=== PATIENT | female | born 2000 | race Caucasian/White ===

== ENCOUNTER 2020-09-15 00:04 | Emergency (ER) | payer OTHER, SELFPAY ==
[2020-09-15 00:09] VITALS: BP 116/67; PULSE 65; RESP 16; TEMP 36.2; O2SAT 98
--- NOTE | 2020-09-15 01:00 | ED.ABDPAIN ---
HPI - Abdominal Pain General Chief Complaint: Abdominal Pain Stated Complaint: low abd cramps Time Seen by Provider: 09/15/20 00:06 History of Present Illness HPI narrative: Severe menstrual cramps since yesterday afternoon. Intermittent. Associated with nausea. Tried Tylenol without improvement. Feels similar to past cramps, but more severe. Related Data Home Medications Medication Instructions Recorded Confirmed trazodone 50 mg PO HS PRN 09/15/20 09/15/20 Allergies Allergy/AdvReac Type Severity Reaction Status Date / Time No Known Allergies Allergy Verified 09/15/20 00:16 Review of Systems Review of Systems: All systems reviewed & are unremarkable except as noted in HPI and below Constitutional: Constitutional: Denies chills and Denies fever(s) Cardiovascular: Cardiovascular: Denies chest pain Respiratory: Respiratory: Denies dyspnea Gastrointestinal: Gastrointestinal: Reports abdominal pain, Denies constipation, Denies diarrhea, Reports nausea and Denies vomiting Genitourinary: Genitourinary: Denies abnormal vaginal bleeding, Denies hematuria and Denies dysuria Neurologic: Denies dizziness and Denies weakness Psychiatric: Psychiatric: Reports anxiety PMFSH Past Medical History Medical History Anxiety Social History Social History Gender identity (if verbalized by the patient): Female Exam Const: General: healthy appearing, no acute distress and alert Nutritional Appearance: well nourished Orientation/consciousness: patient oriented x3 HENMT: Head: normal to inspection Resp: Effort & Inspection: normal respiratory effort Auscultation: clear to auscultation bilaterally Cardio: Rate: regular rate Rhythm: regular rhythm GI: GI Palp: Yes Soft to palpation, Yes Tenderness to palpation present (GI) (periumbilical) and No Guarding due to palpation present (GI) Skin: General skin exam: normal color Neuro: General: patient oriented x3, moves all extremities and CN's II-XI intact bilaterally Speech: normal speech Extrem: General: normal to inspection Course Vital Signs Vital signs: Vital Signs Temperature 36.2 C L 09/15/20 00:09 Pulse Rate 65 09/15/20 00:09 Respiratory Rate 16 09/15/20 00:09 Blood Pressure 116/67 09/15/20 00:09 Pulse Oximetry 98 09/15/20 00:09 Temperature 36.2 C L 09/15/20 00:09 Pulse Rate 65 09/15/20 00:09 Respiratory Rate 16 09/15/20 00:09 Blood Pressure 116/67 09/15/20 00:09 Pulse Oximetry 98 09/15/20 00:09 MDM - Abdominal Pain Differential Diagnosis Differential diagnosis: Likely constipation Medical Records Attestation: I reviewed the patient's medical records. Lab Data Attestation: I reviewed the patient's lab results. Result diagrams: 09/15/20 01:56 09/15/20 01:56 Labs: Lab Results 09/15/20 09/15/20 09/15/20 Range/Units 01:56 01:56 02:42 WBC 6.3 (4.5-10.0) K/mm3 RBC 4.43 (4.2-5.4) M/mm3 Hgb 13.5 (12.0-15.0) g/dL Hct 38.7 (37.0-47.0) % MCV 87.4 (80-100) fl MCH 30.5 (26-34) pg MCHC 34.9 (32-36) g/dl RDW 12.3 (11.5-14.5) % Plt Count 219 (150-375) k/mm3 MPV 9.0 (7.4-10.4) fl Immature Gran % (Auto) 0.2 (0-0.5) % Neut % (Auto) 59.8 (45.5-73.1) % Lymph % (Auto) 31.2 (18.3-44.2) % [place] % (Auto) 4.8 (2.6-8.5) % Eos % (Auto) 3.2 (0-4.4) % Baso % (Auto) 0.8 (0.2-1.2) % Lymph # (Auto) 1.96 (0.9-3.2) K/mm3 [place] # (Auto) 0.3 (0.1-0.6) K/mm3 Eos # (Auto) 0.2 (0-0.3) K/mm3 Baso # (Auto) 0.1 (0.0-0.1) K/mm3 Abs Immat Gran (auto) 0.01 (0.00-0.031) K/mm3 Absolute Neuts (auto) 3.8 (1.3-6.7) K/mm3 Absolute Nucleated RBC 0.0 (0.0-0.012) K/mm3 Nucleated RBC % 0.0 (0.0-0.2) % Sodium 141 (137-145) mmol/L Potassium 4.0 (3.4-5.0) mmol/L Chloride 105 (98-107)
[2020-09-15 02:13] LABS: Basophils Absolute Auto 0.1 K/mm3 (0.0-0.1); Basophils Percent Auto 0.8 % (0.2-1.2); Eosinophils Absolute Auto 0.2 K/mm3 (0-0.3); Eosinophils Percent Auto 3.2 % (0-4.4); Hematocrit 38.7 % (37.0-47.0); Hemoglobin 13.5 g/dL (12.0-15.0); Immature Granulocyte Absolute 0.01 K/mm3 (0.00-0.031); Immature Granulocyte Percent A 0.2 % (0-0.5); Lymphocytes Absolute Auto 1.96 K/mm3 (0.9-3.2); Lymphocytes Percent Auto 31.2 % (18.3-44.2); Mean Corpuscular HGB Conc 34.9 g/dl (32-36); Mean Corpuscular Hemoglobin 30.5 pg (26-34); Mean Corpuscular Volume 87.4 fl (80-100); Monocytes Absolute Auto 0.3 K/mm3 (0.1-0.6); Monocytes Percent Auto 4.8 % (2.6-8.5); Neutrophils Absolute Auto 3.8 K/mm3 (1.3-6.7); Neutrophils Percent Auto 59.8 % (45.5-73.1); Platelet Count Result 219 k/mm3 (150-375); Red Blood Count 4.43 M/mm3 (4.2-5.4); Red Cell Distribution Width 12.3 % (11.5-14.5); White Blood Count 6.3 K/mm3 (4.5-10.0)
[2020-09-15 02:17] LABS: Alanine Aminotransferase 9 U/L (4-35); Albumin Level 4.3 g/dL (3.5-5.1); Alkaline Phosphatase 45 U/L (38-126); Anion Gap 5 mmol/L (8-16); Aspartate Amino Transferase 21 U/L (14-36); Bilirubin,Total 0.3 mg/dL (0.2-1.3); Blood Urea Nitrogen 9 mg/dL (7-17); Calcium 9.5 mg/dL (8.4-10.2); Carbon Dioxide 31 mmol/L (22-30); Chloride 105 mmol/L (98-107); Estimated CRCL calculation 106 ml/min; Estimated Glomerular Filt Rate > 60; Glucose 98 mg/dL (65-105); Lipase 36 U/L (23-300); Sodium 141 mmol/L (137-145)
[2020-09-15] MEDS: KETOROLAC 30 MG/ML VIAL (*BKC) IV PUSH (02:25)
[2020-09-15 03:03] LABS: Add Urine Microscopic? YES; Amorphous Sediment Urine Few; Appearance Urine Cloudy (Clear); Bacteria Urine 1+ /hpf; Bilirubin Urine Negative (Negative); Blood Urine Negative (Negative); Color Urine Yellow (Yellow); Glucose Urine UA Negative (Negative); Ketones Urine Negative (Negative); Leukocyte Esterase Ur Negative LEU/UL (Negative); Mucus Urine Few /lpf; Nitrate Urine Negative (Negative); Protein Urine Negative (Negative); Specific Grav Ur 1.018 (1.001-1.035); Squamous Epithelial Cell Urine Few /hpf (Few); Urobilinogen Urine Negative mg/dL (<2.0)
== END 2020-09-15 04:19 | disposition home or self-care (01) ==
PROVIDERS: Emergency Provider Emergency Medicine
DX: R10.9 Unspecified abdominal pain (principal); F41.9 Anxiety disorder, unspecified; Z97.5 Presence of (intrauterine) contraceptive device
CPT/HCPCS: 36415; 80053; 81001; 81025; 83690; 85025; 96374; 99284; J1885

== ENCOUNTER 2021-02-22 11:18 | Inpatient (IN) | payer OTHER, SELFPAY ==
[2021-02-22] VITALS (30 sets, daily range): BP systolic 114–128; BP diastolic 65–78; PULSE 71–100; RESP 9–20; TEMP 36.7–37.4; O2SAT 95–100
--- NOTE | ~2021-02-22 | US_ITS ---
EXAMINATION: US pelvic complete w TV DATE: 02/22/2021 15:19 INDICATION: Left adnexal pain. TECHNIQUE: Multiple transabdominal and transvaginal sonographic images of the pelvis were obtained. COMPARISON: None. FINDINGS: TRANSABDOMINAL ULTRASOUND: The uterus measures 7.3 x 4.9 x 3.1 cm. There is trace free fluid in the pelvis. TRANSVAGINAL ULTRASOUND: The endometrial complex measures 4 mm in thickness. There is an intrauterine device in expected posit ion. The right ovary measures 4.7 x 1.9 x 2.6 cm. The left ovary measures 2.9 x 2.2 x 2.2 cm. There i s normal vascular flow in the ovaries. IMPRESSION: 1. Normal pelvis. Intrauterine device in expected position. Reviewed, dictated and finalized at location B.
--- NOTE | ~2021-02-22 | CT_ITS ---
EXAMINATION: CT abdomen pelvis w con DATE: 02/22/2021 16:04 INDICATION: Left lower quadrant abdominal pain. TECHNIQUE: Computed tomography (CT) of the abdomen and pelvis was performed with 100 mL Omnipaque 350 intravenous contrast. Automated exposure control and iterative reconstruction technique were employe d. The dose-length product was 207.73 mGy-cm. COMPARISON: None. FINDINGS: The visualized portions of the lung bases demonstrate minimal atelectasis. No pleural effus ion. The heart size is normal. No pericardial effusion. The liver and gallbladder are normal. There i s severe splenomegaly measuring 20.5 cm. There are wedge-shaped peripheral areas of low-attenuation i n the spleen, likely infarcts. There is a hypodense subcapsular hematoma of the spleen measuring 4 mm in greatest thickness, likely subacute or chronic. The pancreas, adrenal glands, and kidneys are nor mal. There is an intrauterine device in expected position. There are no dilated loops of bowel. The a ppendix is not visualized. There are no pathologically enlarged lymph nodes. There is a small volume of pelvic ascites. There is mild lumbar spondylosis. IMPRESSION: 1. Severe splenomegaly with peripheral infarcts and small subacute versus chronic subcapsular hematom a. Reviewed, dictated and finalized at location B. IMPRESSION: 1. Severe splenomegaly with peripheral infarcts and small subacute versus chron ic subcapsular hematoma.
--- NOTE | ~2021-02-22 | US_ITS ---
US abdomen limited DATE: 02/25/2021 09:35 INDICATION: Elevated liver function tests TECHNIQUE: Real-time imaging of liver, pancreas, gallbladder areas COMPARISON: 02/22/2021 CT abdomen pelvis FINDINGS: No hepatic space-occupying mass lesion is evident. Normal hepatopedal portal venous flow di rection. Approximately 3 mm gallbladder wall polyp. No evidence of gallstones. Gallbladder wall thickness is w ithin normal range. Negative sonographic Mendoza sign. Common bile duct measures 3 mm. The pancreas appears unremarkable. There is splenomegaly, spleen measuring up to approximately 18 cm length. There are 2 peripheral area s of hypoechogenicity of the spleen which may represent infarcts or less likely lacerations. IMPRESSION: 3 mm gallbladder polyp Splenomegaly Two areas of peripheral hypoechogenicity of the spleen which may represent splenic infarcts or less l ikely splenic lacerations Reviewed, dictated and finalized at Location A. Reviewed, dictated and finalized at location B. IMPRESSION: 3 mm gallbladder polyp Splenomegaly Two areas of peripheral hypoechogenicity of the spleen which may represent sple shorty infarcts or less likely splenic lacerations
[2021-02-22 12:04] LABS: Basophils Absolute Auto 0.2 K/mm3 (0.0-0.1); Eosinophils Percent Auto 0.1 % (0-4.4); Hematocrit 37.7 % (37.0-47.0); Hemoglobin 12.8 g/dL (12.0-15.0); Immature Granulocyte Absolute 0.03 K/mm3 (0.00-0.031); Immature Granulocyte Percent A 0.4 % (0-0.5); Immature Platelet Fraction Pct 2.8 % (0.9-11.2); Lymphocytes Absolute Auto 5.55 K/mm3 (0.9-3.2); Mean Corpuscular Hemoglobin 30.3 pg (26-34); Mean Corpuscular Volume 89.1 fl (80-100); Mean Platelet Volume 9.6 fl (7.4-10.4); Monocytes Absolute Auto 1.3 K/mm3 (0.1-0.6); Monocytes Percent Auto 16.2 % (2.6-8.5); Neutrophils Percent Auto 12.3 % (45.5-73.1); Platelet Count Result 153 k/mm3 (150-375); Red Blood Count 4.23 M/mm3 (4.2-5.4); Red Cell Distribution Width 13.2 % (11.5-14.5)
[2021-02-22 12:09] LABS: Add Urine Microscopic? YES; Appearance Urine Clear (Clear); Bacteria Urine Trace /hpf; Bilirubin Urine 1+ (Negative); Blood Urine Negative (Negative); Color Urine Amber (Yellow); Glucose Urine UA Negative (Negative); Ketones Urine Negative (Negative); Leukocyte Esterase Ur Negative LEU/UL (Negative); Mucus Urine Heavy /lpf; Nitrate Urine Negative (Negative); Protein Urine 2+ mg/dL (Negative); RBC Urine 0-2 /hpf (0-2); Specific Grav Ur 1.026 (1.001-1.035); Squamous Epithelial Cell Urine Moderate /hpf (Few); WBC Urine 0-3 /hpf
[2021-02-22 12:14] LABS: Alanine Aminotransferase 364 U/L (4-35); Alkaline Phosphatase 307 U/L (38-126); Anion Gap 2 mmol/L (8-16); Aspartate Amino Transferase 371 U/L (14-36); Bilirubin,Total 1.4 mg/dL (0.2-1.3); Blood Urea Nitrogen 5 mg/dL (7-17); Calcium 9.1 mg/dL (8.4-10.2); Carbon Dioxide 31 mmol/L (22-30); Chloride 101 mmol/L (98-107); Estimated CRCL calculation 101 ml/min; Estimated Glomerular Filt Rate > 60; Glucose 91 mg/dL (65-105); Lipase 34 U/L (23-300); Potassium 3.8 mmol/L (3.4-5.0); Sodium 134 mmol/L (137-145)
--- NOTE | 2021-02-22 14:43 | ED.ABDPAIN ---
HPI - Abdominal Pain General Chief Complaint: Abdominal Pain Stated Complaint: abd pain Time Seen by Provider: 02/22/21 14:19 Source: patient and RN notes reviewed Mode of arrival: ambulatory History of Present Illness HPI narrative: This is a 20 year old female who presents for evaluation of left lower abdominal pain for 3 days. Her pain is constant and it is worse with walking and breathing. She has been taking tylenol 500 mg every 4 hours for her pain. She developed nausea today but she denies vomiting. She also reports fever 2 days ago of 101F. She denies dysuria, hematuria or frequent urination. She was evaluated by urgent care yesterday and she was started on macrobid. Her pain has worsened so she came to ER. She denies history of ovarian cyst. Related Data Home Medications Medication Instructions Recorded Confirmed trazodone 50 mg PO HS PRN 09/15/20 02/22/21 albuterol sulfate [Ventolin HFA] 2 puff INHALATION Q4H PRN 02/22/21 02/22/21 citalopram 30 mg PO DAILY 02/22/21 02/22/21 nitrofurantoin macrocrystal 100 mg PO Q12H 02/22/21 02/22/21 Allergies Allergy/AdvReac Type Severity Reaction Status Date / Time No Known Allergies Allergy Verified 09/15/20 00:16 Review of Systems Review of Systems: All systems reviewed & are unremarkable except as noted in HPI and below Constitutional: Constitutional: Denies chills, Reports fatigue and Reports fever(s) ENT: Denies sore throat Cardiovascular: Cardiovascular: Denies chest pain Respiratory: Respiratory: Denies dyspnea Gastrointestinal: Gastrointestinal: Reports abdominal pain, Denies diarrhea, Reports nausea and Denies vomiting Genitourinary: Genitourinary: Denies hematuria, Denies dysuria, Denies urinary incontinence and Reports vaginal discharge Musculoskeletal: Musculoskeletal: Reports back pain PMFSH Past Medical History Medical History (Updated 02/22/21 @ 22:17 by Pat Guaman MD) Anxiety Surgical History Surgical History (Updated 02/22/21 @ 15:06 by Pat Guaman MD) H/O wisdom tooth extraction Social History Social History Smoking status: Never smoker Alcohol intake: current Drinks per week: 1 Substance use: former Substance use type: marijuana Gender identity (if verbalized by the patient): Female Spiritual care concerns: No Exam Const: General: no acute distress and alert Orientation/consciousness: patient oriented x3 Eyes: EOM: EOMs intact bilaterally Chest: Chest palpation & inspection: normal inspection of the chest Resp: Effort & Inspection: normal respiratory effort and no retractions Auscultation: clear to auscultation bilaterally Cardio: Rate: regular rate Rhythm: regular rhythm Heart sounds: no murmurs GI: GI Palp: Yes Soft to palpation, Yes Tenderness to palpation present (GI) (LLQ, LUQ), No Guarding due to palpation present (GI) and No Rigid due to palpation Auscultation: normal bowel sounds : General: Yes no CVA tenderness Speculum Exam - Vagina: abnormal vaginal discharge white Speculum Exam - Cervix: Cervical os closed Bimanual exam- vagina & uterus: no cervical motion tenderness Bimanual Exam- Adnexa, other: No adnexal tenderness Skin: General skin exam: normal color Rashes: no rashes Neuro: General: patient oriented x3, moves all extremities and CN's II-XI intact bilaterally Psych: Mental Status: mental status grossly normal Affect: normal affect Course Reevaluation(s) Reevaluation #1: I have discussed with patient that her test have shown that she has infectious mononucleosis with significant findings of severely enlarge spleen with infarct and hematoma. She states her pain has improved. She is agreeable to observation. she appears stable but I discussed with patient risk of her enlarged spleen. Unable to anticoagulate due to subcapsular hematoma that is subacute or chronic. Date: 02/22/21 Time: 18:00
[2021-02-22] MEDS: KETOROLAC 30 MG/ML VIAL (*BKC) IV PUSH (15:21)
[2021-02-22] MEDS: ONDANSETRON INJ 4 MG/2 ML VIAL IV PUSH (15:22)
[2021-02-22] MEDS: SODIUM CHLORIDE 0.9% IV 1,000 ML 999 ML IV CONT (15:22)
[2021-02-22 16:11] LABS: Hepatitis B Surface Antigen Negative (Negative)
[2021-02-22 16:17] LABS: HAV RESULT Negative (Negative); Hepatitis B Core IgM Result Negative (Negative); Monoscreen Positive (Negative); Negative Monotest Control Negative (Negative); Positive Monotest Control Positive (Positive)
[2021-02-22 16:29] LABS: Hepatitis C Virus Antibody Negative (Negative)
--- NOTE | 2021-02-22 20:39 | PC.NURSE ---
SANTINO faxed. Pt presented to ED with complaints of left side abdominal pain of which at this time pt is requesting pain meds for. Pt states pain is 4 while at rest and 7/10 with movement; will administer prn meds. Pt resting on cart with stable vitals and otherwise has no other complaints at this time. Pt provided lunch box by EDMD. Pt in no obvious distress at this time and is watching TV. Alert and oriented x4 with call button and personal items within reach. Pt advised to press call button for assistance.
--- NOTE | 2021-02-22 21:01 | PC.NURSE ---
Report called to Katie. Moss to send pt to floor.
[2021-02-22] MEDS: MORPHINE SULFATE (*CRX) 4 MG/ML INJ IV PUSH ×2 (21:05→23:19)
--- NOTE | 2021-02-22 21:50 | PC.NURSE ---
This patient, Sallie Diana, was admitted to 3 [facility] Surg Room 319-01. Patient/family oriented to hospital policies and general routines including ID bracelet, bed and alarms, visiting hours, pain management, procedures, bathroom and other care routines, personal items, smoking policy, room service/diet, and visiting hours. Information on how to activate the Rapid Response Team has been discussed. Patient/Family are encouraged to report perceived risks to care and to ask questions if they do not understand what they are told or what they should do.
--- NOTE | 2021-02-22 22:00 | PM.IMHP ---
H&P: HPI History of Present Illness Date/Time: 02/22/21 22:00 Chief Complaint: Abdominal pain. Narrative: This is a very pleasant 20-year-old female without any significant medical history who presented to the emergency department earlier today via private vehicle from home for evaluation of abdominal pain. About 3 or 4 days ago she began feeling unwell with generalized malaise, fatigue, mild sore throat, and left sided abdominal pain. She has a difficult time describing the pain but states it feels like a fullness in the area with intermittent stabbing discomfort. It does not radiate and seems to improve somewhat with Tylenol. Two days ago she spiked a fever of 101? Fahrenheit and has had intermittent chills and sweats since. She was seen at urgent care yesterday and was prescribed antibiotics for possible urinary tract infection however she had no signs or symptoms of such. Today her pain was quite a bit worse and she came in for evaluation. CT of the abdomen and pelvis showed severe splenomegaly with peripheral infarcts and a small subacute versus chronic subcapsular hematoma. Her Monospot came back positive which is quite a surprise to her as she has not had sick contacts or close contact with anybody recently. Her boyfriend has been out of town for over a week visiting his family. 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 In any event multiple phone calls were made regarding her imaging findings and it was thought that she would do fine with conservative treatment and avoidance of any strenuous activities. Due to the size of her spleen it was decided to admit her to the hospital for observation to ensure that she remains stable overnight. Currently she has no specific complaints. Review of Systems Review of Systems: Narrative: Twelve systems were reviewed with pertinent positives and negatives as per HPI. No headache or neck ache. She denies sinus congestion, rhinorrhea, otalgia, and odynophagia. No rash. No lymphadenopathy. She denies jaundice and pruritus. She has not taken more than 4 grams of Tylenol a day. No dysuria, urinary frequency, or hesitancy. She has an IUD and rarely has spotting. Except as documented, all other systems were reviewed and are negative. [facility] Past Medical History Medical History (Updated 02/22/21 @ 23:27 by Hortencia Nunez PA-C) Anxiety Insomnia Surgical History Surgical History (Updated 02/22/21 @ 23:24 by Hortencia Nunez PA-C) History of tonsillectomy History of wisdom tooth extraction Family History Family History (Updated 02/22/21 @ 23:24 by Hortencia Nunez PA-C) Mother Asthma Hypothyroidism Sibling Bipolar disorder Social History Social History (Updated 02/22/21 @ 23:25 by Hortencia Nunez PA-C) Social History: The patient lives in [place] with her boyfriend. She is originally from [place], [place]. She is a lifelong nonsmoker and denies alcohol and illicit substance abuse but did use marijuana in the past. She designates her parents as her surrogate decision makers and she wishes to be a full code. Meds Home Medications and Allergies Home Medications Medication Instructions Recorded Confirmed Type ibuprofen 600 mg PO TID PRN #20 tablet 09/15/20 02/22/21 Rx trazodone 50 mg PO HS PRN 09/15/20 02/22/21 History albuterol sulfate [Ventolin HFA] 2 puff INHALATION Q4H PRN 02/22/21 02/22/21 History citalopram 30 mg PO DAILY 02/22/21 02/22/21 History nitrofurantoin macrocrystal 100 mg PO Q12H 02/22/21 02/22/21 History Allergies Allergy/AdvReac Type Severity Reaction Status Date / Time No Known Allergies Allergy Verified 09/15/20 00:16 Vital Signs Vital Signs - 24 hr 02/22/21 11:42 02/22/21 14:24 02/22/21 14:30 Temperature 98.0 F Pulse Rate 100 85 86 Respiratory Rate 20 14 15 Blood Pressure 124/75 Pulse Oximetry 100 99 99 02/22/21 15:04 02/22/21 15:15 02/22/21 15:30 Temperature Pulse Ra
[2021-02-22] MEDS: SODIUM CHLORIDE 0.9% IV 1,000 ML 125 ML IV CONT (22:55)
[2021-02-23] VITALS (7 sets, daily range): BP systolic 116–132; BP diastolic 62–67; PULSE 76–88; RESP 16–20; TEMP 36.5–37.9; O2SAT 97–99
[2021-02-23] MEDS: MORPHINE SULFATE (*CRX) 4 MG/ML INJ IV PUSH ×6 (02:08→17:35)
[2021-02-23] MEDS: ONDANSETRON INJ 4 MG/2 ML VIAL IV PUSH ×3 (05:10→21:19)
[2021-02-23] MEDS: ACETAMINOPHEN 325 MG TABLET 650 MG PO ×2 (05:14→11:18)
[2021-02-23 06:34] LABS: Basophils Percent Auto 0.4 % (0.2-1.2); Eosinophils Percent Auto 0.4 % (0-4.4); Hematocrit 35.6 % (37.0-47.0); Hemoglobin 12.1 g/dL (12.0-15.0); Immature Granulocyte Absolute 0.04 K/mm3 (0.00-0.031); Immature Granulocyte Percent A 0.5 % (0-0.5); Immature Platelet Fraction Pct 2.9 % (0.9-11.2); Lymphocytes Absolute Auto 5.79 K/mm3 (0.9-3.2); Lymphocytes Percent Auto 77.6 % (18.3-44.2); Mean Corpuscular Volume 88.1 fl (80-100); Mean Platelet Volume 9.6 fl (7.4-10.4); Monocytes Absolute Auto 0.2 K/mm3 (0.1-0.6); Monocytes Percent Auto 2.4 % (2.6-8.5); Neutrophils Absolute Auto 1.4 K/mm3 (1.3-6.7); Neutrophils Percent Auto 18.7 % (45.5-73.1); Platelet Count Result 150 k/mm3 (150-375); Red Blood Count 4.04 M/mm3 (4.2-5.4); Red Cell Distribution Width 13.3 % (11.5-14.5); White Blood Count 7.5 K/mm3 (4.5-10.0)
[2021-02-23 06:47] LABS: Alanine Aminotransferase 323 U/L (4-35); Albumin Level 3.4 g/dL (3.5-5.1); Alkaline Phosphatase 274 U/L (38-126); Anion Gap 1 mmol/L (8-16); Aspartate Amino Transferase 290 U/L (14-36); Bilirubin,Total 1.7 mg/dL (0.2-1.3); Blood Urea Nitrogen 4 mg/dL (7-17); Calcium 8.5 mg/dL (8.4-10.2); Carbon Dioxide 31 mmol/L (22-30); Chloride 104 mmol/L (98-107); Estimated CRCL calculation 101 ml/min; Estimated Glomerular Filt Rate > 60; Glucose 91 mg/dL (65-105); Magnesium 1.7 mg/dL (1.6-2.3); Potassium 4.2 mmol/L (3.4-5.0); Sodium 136 mmol/L (137-145)
[2021-02-23] MEDS: CITALOPRAM HYDROBROMIDE 10 MG TABLET 30 MG PO (08:12)
[2021-02-23] MEDS: SODIUM CHLORIDE 0.9% IV 1,000 ML 75 ML IV CONT (11:18)
--- NOTE | 2021-02-23 17:15 | PM.IMPN ---
Progress Note: A&P Assessment and Plan (1) Infectious mononucleosis: Code(s): B27.90 - Infectious mononucleosis, unspecified without complication Status: Acute Assessment and Plan: encourage adequate hydration and improved dietary intake treat nausea and vomiting provide IV hydration until vomiting stops, will continue her IV fluids at 75 mL an hour, providing antiemetics, continue using Zofran p.r.n.. encourage rest, educate patient to avoid COVID and to continue mask wearing, encouraged her to avoid eating out at risk for COVID infection with her current immune system already stressed. Continued bed rest at this time. Added IV Tylenol p.r.n., added tramadol p.r.n., added [place] p.r.n.. STD workups have been negative, hepatitis panel was negative, cervix culture pending. found to be positive for infectious mononucleosis, now due for her 2nd Moderna COVID vaccination. encouraged her to get that as soon as she recovers, perhaps in 5-7 days. recheck a CMP in the morning to monitor for further improved liver lab work. ALT 323, AST 290, alk-phos 274. urinalysis clear, white count 7.5, elevated temp this morning at 100.2, total bili 1.7. (2) Splenomegaly: Code(s): R16.1 - Splenomegaly, not elsewhere classified Status: Acute Assessment and Plan: pain is left mid quadrant of the abdomen, in spleen region. IV morphine for her pain control. zofran for N/V. still vomiting unable to keep any oral fluids or food down at this time. Continued bed rest. Encouraged her to rest and allow her abdomen to fully relax. Added IV Tylenol p.r.n., added tramadol p.r.n., added [place] p.r.n.. AVOID - NSAIDs. If patient has not improved, will consult general surgery in the morning. follow-up with Gen. Surgery after discharge. may be related to [place] diagnosis. continue her IV fluids at 75 mL an hour encouraged her to rest and get plenty of sleep. 1st Moderna COVID vaccination a month ago and is now due for her 2nd vaccination. Will recheck a CMP in the morning to monitor for further improved liver lab work. elevated LFTs: ALT was 323, AST was 290, alk-phos was 274. her urinalysis was clear, white count 7.5, elevated temp this morning at 100.2, total bili 1.7. (3) Splenic infarct: Code(s): D73.5 - Infarction of spleen Status: Acute Assessment and Plan: she continues to be hemodynamically stable with SBPs greater than 110 and heart rate in the 80s, regular rhythm still requiring IV morphine for her pain control and Zofran p.r.n.. Continued bed rest at this time. Added IV Tylenol p.r.n., added tramadol p.r.n., added [place] p.r.n.. Provided nursing instructions to use these oral pain controlling agents to avoid using IV morphine. follow-up with Gen. Surgery office after her discharge. positive for infectious mononucleosis, continue her IV fluids at 75 mL an hour, recent Moderna COVID vaccination denies any physical trauma recheck a CMP in the morning to monitor for further improved liver lab work. Her ALT was 323, AST was 290, alk-phos was 274. her urinalysis was clear, white count 7.5, elevated temp this morning at 100.2, total bili 1.7. (4) Hematoma of spleen without rupture of capsule: Code(s): D73.5 - Infarction of spleen Status: Acute Assessment and Plan: IV morphine for her pain control. pain is left mid to lower quadrant of the abdomen, in spleen region. N/V controlled with zofran, ordering soft bland diet Continued bed rest at this time. Will recheck a CBC and CMP in the morning ALT 323, AST 290, alk-phos 274. her urinalysis clear, white count 7.5, elevated temp this morning at 100.2, total bili 1.7. continue IVFs. subcapsular hematomas neither predictor for delayed rupture nor an indication for operation of the spleen in a hemodynamically stable patient If patient has not improved, will consult general surgery in the morning. I did sp
[2021-02-23 19:20] LABS: Immature Reticulocyte Fraction 12.6 % (3.0-15.9); Reticulocyte Hemoglobin Conten 30.9 pg (28.2-35.7); Reticulocyte Percent 2.18 % (0.7-4.3); Reticulocytes Absolute 0.08 B/L (32.2-175.7)
[2021-02-23] MEDS: HYDROcodone/acetaminophen (*CRX) 5-325 MG TABLET 1 TAB PO (20:05)
[2021-02-23] MEDS: traMADol HCL (*CRX) 50 MG TABLET PO (23:18)
[2021-02-24] MEDS: SODIUM CHLORIDE 0.9% IV 1,000 ML 75 ML IV CONT ×2 (02:19→19:04)
[2021-02-24] MEDS: HYDROcodone/acetaminophen (*CRX) 5-325 MG TABLET 1 TAB PO ×3 (02:23→21:35)
[2021-02-24 06:00] VITALS: BP 128/67; PULSE 73; RESP 16; TEMP 36.8; O2SAT 100
[2021-02-24 07:04] LABS: Hematocrit 35.9 % (37.0-47.0); Hemoglobin 12.2 g/dL (12.0-15.0); Mean Corpuscular Hemoglobin 28.9 pg (26-34); Mean Corpuscular Volume 85.1 fl (80-100); Mean Platelet Volume 9.5 fl (7.4-10.4); Platelet Count Result 148 k/mm3 (150-375); Red Blood Count 4.22 M/mm3 (4.2-5.4); Red Cell Distribution Width 13.3 % (11.5-14.5); White Blood Count 9.9 K/mm3 (4.5-10.0)
[2021-02-24 07:12] LABS: Lactic Acid Reflex 0.9 mmol/L (0.7-2.1)
[2021-02-24 07:22] LABS: Alanine Aminotransferase 545 U/L (4-35); Albumin Level 3.2 g/dL (3.5-5.1); Alkaline Phosphatase 301 U/L (38-126); Anion Gap 2 mmol/L (8-16); Aspartate Amino Transferase 646 U/L (14-36); Blood Urea Nitrogen 5 mg/dL (7-17); Calcium 8.9 mg/dL (8.4-10.2); Carbon Dioxide 33 mmol/L (22-30); Chloride 101 mmol/L (98-107); Creatine Kinase 22 U/L (30-135); Estimated CRCL calculation 116 ml/min; Estimated Glomerular Filt Rate > 60; Glucose 70 mg/dL (65-105); Potassium 4.4 mmol/L (3.4-5.0); Sodium 136 mmol/L (137-145)
[2021-02-24 07:34] LABS: Lactate Dehydrogenase 2118 U/L (313-618)
[2021-02-24] MEDS: ONDANSETRON INJ 4 MG/2 ML VIAL IV PUSH ×2 (07:45→14:43)
[2021-02-24] MEDS: traMADol HCL (*CRX) 50 MG TABLET PO ×2 (07:45→17:27)
[2021-02-24 08:00] VITALS: PULSE 73; RESP 16; O2SAT 100
[2021-02-24 08:28] LABS: Band Neutrophils Percent 3 % (0-6); Lymphocytes Absolute Manual 8.61 K/mm3 (1.1-4.5); Neutrophils Absolute Manual 1.28 K/mm3 (1.7-7.2); Neutrophils Percent Manual 10 % (46-73); Total Cells Counted 100
[2021-02-24 08:47] LABS: Platelet Estimate Decreased (Adequate)
[2021-02-24] MEDS: MORPHINE SULFATE (*CRX) 4 MG/ML INJ IV PUSH (08:56)
[2021-02-24] MEDS: PANTOPRAZOLE SODIUM IV 40 MG VIAL IV PUSH ×2 (12:28→21:36)
[2021-02-24] MEDS: METOCLOPRAMIDE HCL INJ 10 MG/2 ML VIAL IV PUSH ×2 (12:28→18:53)
[2021-02-24] MEDS: BISACODYL 10 MG SUPPOSITORY RECTAL (12:28)
--- NOTE | 2021-02-24 13:18 | PM.IMPN ---
Progress Note: A&P Assessment and Plan (1) Infectious mononucleosis: Onset Date: ~02/2021 Code(s): B27.90 - Infectious mononucleosis, unspecified without complication Status: Acute Assessment and Plan: encourage adequate hydration and improved dietary intake stop nausea and vomiting stop IV fluids at 75 mL an hour once N/V controlled providing antiemetics, continue using Zofran p.r.n..and Reglan encourage rest, educate patient to avoid COVID and to continue mask wearing Continued bed rest at this time. continue tramadol p.r.n., added [place] p.r.n.. STD workups have been negative, hepatitis panel was negative, cervix culture pending. found to be positive for infectious mononucleosis A now due for her 2nd Moderna COVID vaccination. encouraged her to get that as soon as she recovers, perhaps in 5-7 days. LFTs rising, possibly due to [place], may need to follow-up with Infectious Disease Dr. Alvarez. (2) Splenomegaly: Onset Date: ~02/2021 Code(s): R16.1 - Splenomegaly, not elsewhere classified Status: Acute Assessment and Plan: pain is left mid quadrant of the abdomen, in spleen region. tramadol, norco, IV morphine for her pain control. zofran and reglan for N/V. still vomiting AVOID - NSAIDs. consulted general surgery Her reticulocyte count is significantly low , may need to follow-up with hematology to ensure this resolves. liver enzymes are also increasing, alk-phos 274 to 301 now, ALT 323 to 545 now, AST 290 to 646 now, bili up to 3.0 related to mono (3) Splenic infarct: Onset Date: Unknown Code(s): D73.5 - Infarction of spleen Status: Acute Assessment and Plan: no increase in pain or discomfort today H/H stable retic count very low hemodynamically stable with SBPs greater than 110 and heart rate in the 80s, regular rhythm still requiring IV morphine / tramadol / [place] and Zofran/Reglan p.r.n.. Continued bed rest at this time. positive for infectious mononucleosis, recent Moderna COVID vaccination denies any physical trauma (4) Hematoma of spleen without rupture of capsule: Onset Date: ~02/21/21 Code(s): D73.5 - Infarction of spleen Status: Acute Assessment and Plan: may need rescanned prior to discharge subcapsular hematomas neither predictor for delayed rupture nor an indication for operation of the spleen in a hemodynamically stable patient appreciate Gen Surgery following H/H stable as noted (5) Elevated LFTs: Onset Date: ~02/2021 Code(s): R79.89 - Other specified abnormal findings of blood chemistry Status: Acute Assessment and Plan: Could be related to MONO and N/V/dehydration or Spleen hematoma. tramadol p.r.n., [place] p.r.n.. continue to avoid NSAIDs. hepatitis panel was negative, positive for infectious mononucleosis, denies any alcohol use of anything more than 1 drink socially LFTs and BILI all worse today Additional Plan The patient presents today for evaluation of left upper quadrant abdominal pain, found to have severe splenomegaly with peripheral infarcts in small subacute versus chronic subcapsular hematoma. She was also positive for mononucleosis with transaminitis. I assume the splenic infarcts may be related to the mono as she has no personal or family history of hypercoagulable state. A subcapsular hematoma was also noted in the spleen however may very well be chronic. It is because of this that we decided to monitor her overnight to ensure stability. Conservative treatment to include IV fluid rehydration, antiemetics, and analgesics as needed. We had a long discussion about the importance to avoid strenuous activity and contact given the splenomegaly. Subjective Date/time seen: 02/24/21 13:18 Sallie is slightly improved today. Her abdomen is less tender to the touch, she did have an episode of vomiting today, this morning prior to the general surgeon
--- NOTE | 2021-02-24 13:20 | PM.CNGS ---
Assessment and Plan Assessment and plan (1) Infectious mononucleosis: Onset Date: ~02/2021 Code(s): B27.90 - Infectious mononucleosis, unspecified without complication Status: Acute Assessment and Plan: This patient is still having symptoms from this. Does not have much abdominal pain but is complaining of constant nausea. Has not had a bowel movement in several days. (2) Hematoma of spleen without rupture of capsule: Onset Date: ~02/21/21 Code(s): D73.5 - Infarction of spleen Status: Acute Assessment and Plan: CT scan in the emergency room showed some splenic infarcts and a subcapsular hematoma. This appeared to be chronic and the spleen was enlarged to 20 cm. I cannot specifically feel it underneath the left rib margin but the patient does have some left upper quadrant tenderness to palpation. (3) Elevated LFTs: Onset Date: ~02/2021 Code(s): R79.89 - Other specified abnormal findings of blood chemistry Status: Acute Assessment and Plan: This may also be secondary to her mononucleosis. Would simply observe and repeat labs as needed. (4) Splenomegaly: Onset Date: ~02/2021 Code(s): R16.1 - Splenomegaly, not elsewhere classified Status: Acute Assessment and Plan: Most likely secondary to 1. Above. Have warned patient about contact sports and avoiding falls. (5) Splenic infarct: Onset Date: Unknown Code(s): D73.5 - Infarction of spleen Status: Acute Assessment and Plan: As above. Additional Plan Because nausea is the patient's main problem I have rearranged her nausea medication such as she could have something once every 3 hours this will alternate Reglan and Zofran. Since Reglan has an interaction with her citalopram we will hold this and see if hospitalist can order something else for her bipolar disease or simply hold it for a few days and restart it when she can come off the Reglan. I have put her back on clear liquids and encouraged her to try clear liquids as she tolerates it. I also couraged her to walk in the hallways as activity seems to help the bowels. History of Present Illness Consult details Consult date: 02/25/21 Reason for consult: other (nausea in face of Mononucleosis) Requesting physician: Roselyn Nguyen NP Narrative: This is a very pleasant 20-year-old White female without any significant medical history who presented to the emergency department on 02/21/2021 via private vehicle from home for evaluation of abdominal pain. About 3 or 4 days before that she began feeling unwell with generalized malaise, fatigue, mild sore throat, and left sided abdominal pain. She has a difficult time describing the pain but states it feels like a fullness in the area with intermittent stabbing discomfort. It does not radiate and seems to improve somewhat with Tylenol. Two days prior to admission she spiked a fever of 101? Fahrenheit and has had intermittent chills and sweats since. She was seen at an urgent care yesterday and was prescribed antibiotics for possible urinary tract infection however she had no signs or symptoms of such. Today her pain was quite a bit worse and she came in for evaluation. CT of the abdomen and pelvis showed severe splenomegaly with peripheral infarcts and a small subacute versus chronic subcapsular hematoma. Her Monospot came back positive which is quite a surprise to her as she has not had sick contacts or close contact with anybody recently. Her boyfriend has been out of town for over a week visiting his family. 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 In any event multiple phone calls were made regarding her imaging findings and it was thought that she would do fine with conservative treatment and avoidance of any strenuous activities. Due to the size of her spleen it was decided to admit her to the hospital for observation to ensure that she
[2021-02-24 13:49] VITALS: BP 129/58; PULSE 65; RESP 16; TEMP 36.4; O2SAT 100
[2021-02-24] MEDS: DOCUSATE SODIUM 100 MG CAPSULE PO (21:36)
[2021-02-24 21:49] VITALS: BP 122/65; PULSE 75; RESP 18; TEMP 37.1; O2SAT 99
[2021-02-25 05:36] VITALS: BP 119/62; PULSE 78; RESP 18; TEMP 36.9; O2SAT 98
[2021-02-25 06:22] LABS: Basophils Absolute Auto 0.2 K/mm3 (0.0-0.1); Basophils Percent Auto 1.9 % (0.2-1.2); Eosinophils Percent Auto 0.1 % (0-4.4); Hematocrit 34.7 % (37.0-47.0); Hemoglobin 12.1 g/dL (12.0-15.0); Immature Granulocyte Absolute 0.06 K/mm3 (0.00-0.031); Immature Granulocyte Percent A 0.7 % (0-0.5); Lymphocytes Absolute Auto 6.91 K/mm3 (0.9-3.2); Lymphocytes Percent Auto 81.1 % (18.3-44.2); Mean Corpuscular HGB Conc 34.9 g/dl (32-36); Mean Corpuscular Hemoglobin 29.3 pg (26-34); Mean Platelet Volume 9.3 fl (7.4-10.4); Monocytes Absolute Auto 0.2 K/mm3 (0.1-0.6); Neutrophils Absolute Auto 1.2 K/mm3 (1.3-6.7); Neutrophils Percent Auto 14.2 % (45.5-73.1); Nucleated Red Blood Cells Perc 0.5 % (0.0-0.2); Platelet Count Result 144 k/mm3 (150-375); Red Blood Count 4.13 M/mm3 (4.2-5.4); Red Cell Distribution Width 13.1 % (11.5-14.5); White Blood Count 8.5 K/mm3 (4.5-10.0)
[2021-02-25 06:43] LABS: Alanine Aminotransferase 624 U/L (4-35); Albumin Level 3.1 g/dL (3.5-5.1); Alkaline Phosphatase 430 U/L (38-126); Anion Gap 6 mmol/L (8-16); Aspartate Amino Transferase 655 U/L (14-36); Blood Urea Nitrogen 5 mg/dL (7-17); Calcium 8.4 mg/dL (8.4-10.2); Carbon Dioxide 27 mmol/L (22-30); Chloride 100 mmol/L (98-107); Estimated CRCL calculation 116 ml/min; Estimated Glomerular Filt Rate > 60; Glucose 70 mg/dL (65-105); Potassium 3.7 mmol/L (3.4-5.0); Sodium 133 mmol/L (137-145)
[2021-02-25 06:58] LABS: Atypical Lymphocytes Present; Platelet Estimate Adequate (Adequate)
[2021-02-25] MEDS: HYDROcodone/acetaminophen (*CRX) 5-325 MG TABLET 1 TAB PO ×3 (07:41→20:04)
[2021-02-25] MEDS: SODIUM CHLORIDE 0.9% IV 1,000 ML 75 ML IV CONT (07:41)
[2021-02-25] MEDS: DOCUSATE SODIUM 100 MG CAPSULE PO (09:38)
[2021-02-25] MEDS: ONDANSETRON HCL ODT 4 MG TABLET SUBLINGUAL (09:38)
[2021-02-25] MEDS: PANTOPRAZOLE SODIUM IV 40 MG VIAL IV PUSH ×2 (09:38→20:05)
--- NOTE | 2021-02-25 11:16 | WPDINFPN2 ---
Progress Note: A&P Assessment and Plan (1) Infectious mononucleosis: Onset Date: ~02/2021 Code(s): B27.90 - Infectious mononucleosis, unspecified without complication Status: Acute Assessment and Plan: EBV mono, immunocompetent REC Supportive care, call if other Qs Subjective Date/time seen: 02/25/21 11:16 Objective Data Vital Signs Vital Signs: Vital Signs - 24 hr 02/24/21 13:49 02/24/21 21:49 02/25/21 05:36 Temperature 36.4 C 37.1 C 36.9 C Pulse Rate 65 75 78 Respiratory Rate 16 18 18 Blood Pressure 129/58 L 122/65 119/62 Pulse Oximetry 100 99 98 Intake/Output Intake/Output: Intake & Output 02/22/21 02/23/21 02/24/21 02/25/21 23:59 23:59 23:59 23:59 Intake Total 1000 4020 2940 1250 Output Total 2000 2300 700 Balance 1000 2020 640 550 Meds/Results Medications: Active Medications Generic Name Dose Route Start Last Admin Trade Name Freq PRN Reason Stop Dose Admin Hydrocodone Bitart/Acetaminophen 1 tab 02/23/21 16:33 02/25/21 07:41 Hydrocodone/Acetaminophen (*Crx) 5-325 Mg Tablet PO 1 tab Q6H PRN Administration Pain Rated 6 or Greater Albuterol 2 puff 02/22/21 23:33 Albuterol Sulfate (*Sp) Aerosol 1 Puff INHALATION Q4H PRN Shortness Of Breath Or Wheezing Citalopram Hydrobromide 30 mg 02/23/21 09:00 02/24/21 11:30 Citalopram Hydrobromide 10 Mg Tablet PO Not Given DAILY ARNOLDO Docusate Sodium 100 mg 02/24/21 21:00 02/25/21 09:38 Docusate Sodium 100 Mg Capsule PO 100 mg Q12HR ARNOLDO Administration Sodium Chloride 1,000 mls @ 75 mls/hr 02/22/21 19:20 02/25/21 07:41 Normal Saline Iv IV CONT 75 mls/hr .[id number] ARNOLDO Administration Metoclopramide HCl 10 mg 02/24/21 09:22 02/24/21 18:53 Metoclopramide Hcl Inj 10 Mg/2 Ml Vial IV PUSH 10 mg Q6HR PRN Administration Nausea Morphine Sulfate 4 mg 02/23/21 01:43 02/24/21 08:56 Morphine Sulfate (*Crx) 4 Mg/Ml Inj IV PUSH 4 mg Q3H PRN Administration Pain Rated 7-10 Ondansetron HCl 4 mg 02/25/21 08:45 02/25/21 09:38 Ondansetron Hcl Odt 4 Mg Tablet SUBLINGUAL 4 mg Q6HR PRN Administration Nausea And Vomiting Pantoprazole Sodium 40 mg 02/24/21 09:00 02/25/21 09:38 Pantoprazole Sodium Iv 40 Mg Vial IV PUSH 40 mg Q12HR ARNOLDO Administration Tramadol HCl 50 mg 02/23/21 16:33 02/24/21 17:27 Tramadol Hcl (*Crx) 50 Mg Tablet PO 50 mg Q6H PRN Administration Pain Rated 5 or Less Trazodone HCl 50 mg 02/22/21 23:33 Trazodone Hcl 50 Mg Tablet PO HS PRN Insomnia Radiology Results: ITS Impressions Pelvic/Transvag US 02/22/21 15:21 IMPRESSION: 1. Normal pelvis. Intrauterine device in expected position. Abdomen/Pelvis CT 02/22/21 16:11 IMPRESSION: 1. Severe splenomegaly with peripheral infarcts and small subacute versus chronic subcapsular hematoma. Abdomen Ultrasound 02/25/21 09:54 IMPRESSION: 3 mm gallbladder polyp Splenomegaly Two areas of peripheral hypoechogenicity of the spleen which may represent splenic infarcts or less likely splenic lacerations Labs Labs: Laboratory Results - last 24 hr 02/25/21 02/25/21 06:04 06:04 WBC 8.5 RBC 4.13 L Hgb 12.1 Hct 34.7 L MCV 84.0 MCH 29.3 MCHC 34.9 RDW 13.1 Plt Count 144 L MPV 9.3 Immature Gran % (Auto) 0.7 H Neut % (Auto) 14.2 L Lymph % (Auto) 81.1 H Glascock % (Auto) 2.0 L Eos % (Auto) 0.1 Baso % (Auto) 1.9 H Lymph # (Auto) 6.91 H Glascock # (Auto) 0.2 Eos # (Auto) 0.0 Baso # (Auto) 0.2 H Abs Immat Gran (auto) 0.06 H Absolute Neuts (auto) 1.2 L Absolute Nucleated RBC 0.0 Nucleated RBC % 0.5 H Atypical Lymphocytes Present Platelet Estimate Adequate Sodium 133 L Potassium 3.7 Chloride 100 Carbon Dioxide 27 Anion Gap 6 L BUN 5 L Creatinine 0.60 L Estim Creat Clear Calc 116 Estimated GFR > 60 Glucose 70 Calcium 8.4 Total Bilirubin
--- NOTE | 2021-02-25 13:45 | PM.IMPN ---
Progress Note: A&P Assessment and Plan (1) Infectious mononucleosis: Onset Date: ~02/2021 Code(s): B27.90 - Infectious mononucleosis, unspecified without complication Status: Acute Assessment and Plan: Charles Mix spot test + -likely the etiology of her elevated liver enzymes, splenomegaly, and pain -patient is improving but still having pain -ultrasound of the abdomen shows her spleen is enlarged at 18 cm, which was slightly less than on admission with the CT at 20 cm -splenic infarctions thought to be found on ultrasound -no signs of splenic rupture at this time -Will check for HIV in the AM -ID consulted, I appreciate his recommendations -No need for steroids or antivirals at this time -PRN norco -stop IVF and encourage oral intake (2) Splenomegaly: Onset Date: ~02/2021 Code(s): R16.1 - Splenomegaly, not elsewhere classified Status: Acute Assessment and Plan: Due to above -monitor (3) Splenic infarct: Onset Date: Unknown Code(s): D73.5 - Infarction of spleen Status: Acute Assessment and Plan: no increase in pain or discomfort today -H/H stable (4) Hematoma of spleen without rupture of capsule: Onset Date: ~02/21/21 Code(s): D73.5 - Infarction of spleen Status: Acute Assessment and Plan: -CT shows a hypodense subcapsular hematoma of the spleen measuring 4 mm in greatest thickness, likely subacute or chronic -Sx recommends monitoring. If any signs of hemo instability or sudden worsening pain/anemia, may consider re-evaluating. (5) Elevated LFTs: Onset Date: ~02/2021 Code(s): R79.89 - Other specified abnormal findings of blood chemistry Status: Acute Assessment and Plan: Likely related to mono -denies any alcohol use of anything more than 1 drink socially -Hepatitis panel negative -bili up today, u/s done which did not show cause for concern. There was a gallbladder polyp that could be removed electively in the future or can undergo surveillance imaging to monitor it as they are usually benign but should be monitored. -Monitor with daily labs Time Spent With Patient Time with patient: 25 - 35 minutes Subjective Date/time seen: 02/25/21 13:45 Interval history: Pt is a 20-year-old female here for complications of mono. Patient was seen today and states she continues to have pain in her left upper quadrant but it is improved compared to when she 1st came in. She was just eating breakfast on my exam and so far did not have any nausea or vomiting with it. Pt denies fevers, chills, sore throat, stiff neck, constipation, diarrhea, chest pain, or shortness of breath. Review of Systems Review of Systems: All systems reviewed & are unremarkable except as noted in HPI and below Exam Narrative: Exam Narrative: General: Well developed well nourished patient in NAD HEENT: normocephalic Neck: supple Neuro: Alert and oriented x4 CV:RRR Resp:CTA Abd: Soft, non distended. No pain to palpation. Positive bowel sounds. Splenomegaly without hepatomegaly on exam. Extremities: No swelling, erythema, or pain to palpation. Objective Data Vital Signs Vital Signs: Vital Signs - 24 hr 02/24/21 13:49 02/24/21 21:49 02/25/21 05:36 Temperature 97.6 F 98.8 F 98.4 F Pulse Rate 65 75 78 Respiratory Rate 16 18 18 Blood Pressure 129/58 L 122/65 119/62 Pulse Oximetry 100 99 98 Intake/Output Intake/Output: Intake & Output 02/22/21 02/23/21 02/24/21 02/25/21 23:59 23:59 23:59 23:59 Intake Total 1000 4020 2940 1250 Output Total 2000 2300 700 Balance 1000 2020 640 550 Meds/Results Medications: Active Medications Generic Name Dose Route Start Last Admin Trade Name Freq PRN Reason Stop Dose Admin Hydrocodone Bitart/Acetaminophen 1 tab 02/23/21 16:33 02/25/21 07:41 Hydrocodone/Acetaminophen (*Crx) 5-325 Mg Tablet PO 1 tab Q6H PRN Administration Pain Ra
[2021-02-25 13:47] VITALS: BP 124/59; PULSE 69; RESP 16; TEMP 37.6; O2SAT 100
--- NOTE | 2021-02-25 15:57 | PM.PNGS ---
Progress Note: A&P Assessment and Plan (1) Infectious mononucleosis: Onset Date: ~02/2021 Code(s): B27.90 - Infectious mononucleosis, unspecified without complication Status: Acute Assessment and Plan: Nausea and abdominal pain have improved more today. Only received one dose of Zofran early this morning. She is able to tolerate a regular diet today and oral medications. Continue supportive care. (2) Hematoma of spleen without rupture of capsule: Onset Date: ~02/21/21 Code(s): D73.5 - Infarction of spleen Status: Acute Assessment and Plan: CT scan in the emergency room showed some splenic infarcts and a subcapsular hematoma. This appeared to be chronic and the spleen was enlarged to 20 cm. She is showing signs of clinical improvement. LFTs are up again today. Other labs were unremarkable. Continue to monitor. No indication for surgical intervention at this time. (3) Elevated LFTs: Onset Date: ~02/2021 Code(s): R79.89 - Other specified abnormal findings of blood chemistry Status: Acute Assessment and Plan: LFTs continue to rise. Could be secondary to her mono. Discussed with Hospitalist who will repeat labs again tomorrow. (4) Splenomegaly: Onset Date: ~02/2021 Code(s): R16.1 - Splenomegaly, not elsewhere classified Status: Acute Assessment and Plan: Likely secondary to her mono. She should avoid contact sports or any activity that could cause chest/abdominal trauma. (5) Splenic infarct: Onset Date: Unknown Code(s): D73.5 - Infarction of spleen Status: Acute Assessment and Plan: As above. Additional Plan I have discussed the plan of care with Dr. Diamond. Subjective Subjective Date/Time Seen: 02/25/21 15:57 Patient reports: feels better, pain is less, tolerating a regular diet, flatus, no bowel movement and nausea (improving) Interval history: Patient seen this morning and feeling better today. Nausea has improved and she has been able to tolerate a diet. No vomiting. Abdominal pain continues to improve. No other complaints at this time. Review of Systems Review of Systems: All systems reviewed & are unremarkable except as noted in HPI and below Exam Const: General: no acute distress and awake Orientation/consciousness: patient oriented x3 GI: Inspection: normal to inspection and non-distended GI Palp: Yes Soft to palpation, Yes Tenderness to palpation present (GI) (left sided, worse in LUQ), No Guarding due to palpation present (GI), Yes Splenomegaly present (difficult to appreciate) and No Rebound tenderness present Auscultation: normal bowel sounds Skin: General skin exam: normal color Neuro: General: no focal motor deficits Extrem: General: no clubbing, cyanosis or edema and no calf tenderness Psych: Appearance: grossly normal Insight: Good insight present (Psych) Objective Data Vital Signs Vital Signs: Vital Signs - 24 hr 02/24/21 21:49 02/25/21 05:36 02/25/21 13:47 Temperature 98.8 F 98.4 F 99.6 F Pulse Rate 75 78 69 Respiratory Rate 18 18 16 Blood Pressure 122/65 119/62 124/59 L Pulse Oximetry 99 98 100 Intake/Output Intake/Output: Intake & Output 02/22/21 02/23/21 02/24/21 02/25/21 23:59 23:59 23:59 23:59 Intake Total 1000 4020 2940 1490 Output Total 2000 2300 700 Balance 1000 2020 640 790 Meds/Results Medications: Active Medications Generic Name Dose Route Start Last Admin Trade Name Freq PRN Reason Stop Dose Admin Hydrocodone Bitart/Acetaminophen 1 tab 02/23/21 16:33 02/25/21 14:19 Hydrocodone/Acetaminophen (*Crx) 5-325 Mg Tablet PO 1 tab Q6H PRN Administration Pain Rated 6 or Greater Albuterol 2 puff 02/22/21 23:33 Albuterol Sulfate (*Sp) Aerosol 1 Puff INHALATION Q4H PRN Shortness Of Breath Or Wheezing Citalopram Hydrobromide 30 mg 02/23/21 09:00 02/24/21 11:30 Citalopram Hydrobromide 10 Mg Tablet PO Not
--- NOTE | 2021-02-25 16:08 | CONS_ITS ---
DATE OF CONSULTATION: 02/25/2021 REASON FOR CONSULTATION: Mononucleosis. HISTORY OF PRESENT ILLNESS: A 20-year-old female, who is healthy. She has received all of her childhood vaccinations that she is aware of. She has had no previous hepatitis. She is on no immunosuppressants. She began feeling ill several days prior to admission with abdominal pain, one day of fever, generalized weakness, chills, and sweats. She was given antibiotics for UTI one day before admission and then was admitted. To my recollection, I did speak with the emergency room physician about this patient and recommended supportive care; however, she was admitted on February 22 and consultation requested today. Her abdominal pain is improved, was in both upper quadrants. She still has some weakness. Sore throat has resolved. No further fever, chills, or sweats. ALLERGIES: NONE KNOWN. HABITS: No tobacco. No alcohol, other than rarely for the latter. PRESENT MEDICATIONS: No immunosuppressants. PAST MEDICAL HISTORY: Tonsillectomy and wisdom teeth extractions. FAMILY HISTORY: Bipolar, asthma, hypothyroidism. SOCIAL HISTORY: She lives locally. She works in a bank. REVIEW OF SYSTEMS: Constitutional, GI, ENT, skin, musculoskeletal otherwise negative. PHYSICAL EXAMINATION: GENERAL: She appears well. VITAL SIGNS: Temperature shortly after arrival was 37.9, but now afebrile consistently, 78, 18, 119/62, 98% room air. SKIN: No rashes. No jaundice. EENT: There is no icterus. The oral mucosa is well hydrated. NECK: No adenopathy, masses, meningismus. LUNGS: Clear to auscultation and percussion. CARDIAC: Regular rate and rhythm. No murmur, gallop, or rub. ABDOMEN: Mildly tender, both upper quadrants, nondistended. Normal bowel sounds. No masses. EXTREMITIES: Well perfused. No clubbing, cyanosis, edema. LABORATORY DATA: Urine culture from February 22, final no growth. Blood cultures from February 23, no growth so far. Other laboratory from the Urgent Care showed moderate squamous cells, 0 to 2 red cells, 0 to 3 white cells, heavy mucus threads. White blood cell count 8.5 with 81% lymphocytes, up from 69%. Remainder of her CBC is normal. Liver function tests, 20 times normal. In terms of transaminases, bilirubin is 4.0. Remainder of chemistry panel normal. Monospot is reactive. Hepatitis panel is nonreactive. Trichomonas negative. ASSESSMENT: 1. Positive Monospot, in the setting of hepatitis, splenomegaly with suspected infarcts and hematoma, also lymphocytosis, all suggestive of acute Matias-Cazares virus mononucleosis. Other causes of her present illness are unlikely. 2. Acute febrile illness, due to the above. I cannot tell why a diagnosis of urinary tract infection was made, and I agree with not giving any further nitrofurantoin. RECOMMENDATIONS: 1. Supportive care. Steroids of no benefit. 2. Follow up liver function tests over time, but anticipate full recovery and discussed with her. 3. 4. Thank you for asking me to see her. I also discussed with her natural history of her illness, potential modes of transmission, and also she can receive her 2nd coronavirus vaccination any time. Please call if further questions arise. LUBA RIDER M.D. [employer] D Bernie MT: Art
[2021-02-25] MEDS: traMADol HCL (*CRX) 50 MG TABLET PO (17:31)
--- NOTE | 2021-02-25 18:06 | PDONCCN ---
HPI - Date of Consult Date/Time: 02/25/21 18:06 Requesting Physician: Altagracia Ross PA-C Primary Care Provider: [employer] SET UP OPERATOR PHYSICIAN - Consult Narrative Reason for consult: Splenomegaly and lymphadenopathy. Narrative: Sallie Diana is a 20 year old female who is visiting from [place] meet her boyfriend presented with 4 days history of upper abdominal pain with 1 day of fever which spiked to 101 F with intermittent chills and night sweats. She denies any long bones are lymphadenopathy. Denies any sore throat. She was also experiencing intermittent nausea vomiting. CT abdomen and pelvis showed severe splenomegaly with peripheral infarction and as well as subacute versus chronic subcapsular hematoma. Monospot test came back positive for mononucleosis. She denies any previous history of thromboembolic events. There is a family history of factor 5 Leiden mutation in the mother. There is no other family history of blood clotting disorders. She was started on IV hydration as well as antiemetics with improvement in her symptoms and already feeling better. Review of Systems - Review of Systems All systems reviewed & are unremarkable except as noted in HPI and bel - Neurologic Reports hearing normal, Denies confusion, Denies headache(s), Denies loss of vision, Denies memory loss [facility] Medical History: Medical History (Last Reviewed 02/24/21 @ 13:21 by Trenton Diamond MD) Anxiety Insomnia Surgical History: Surgical History (Last Reviewed 02/24/21 @ 13:21 by Trenton Diamond MD) History of tonsillectomy History of wisdom tooth extraction Family History: Family History (Last Reviewed 02/24/21 @ 13:21 by Trenton Diamond MD) Mother Asthma Hypothyroidism Sibling Bipolar disorder Meds Home Medications Medication Instructions Recorded Confirmed Type ibuprofen 600 mg PO TID PRN #20 tablet 09/15/20 02/22/21 Rx trazodone 50 mg PO HS PRN 09/15/20 02/22/21 History albuterol sulfate [Ventolin HFA] 2 puff INHALATION Q4H PRN 02/22/21 02/22/21 History citalopram 30 mg PO DAILY 02/22/21 02/22/21 History nitrofurantoin macrocrystal 100 mg PO Q12H 02/22/21 02/22/21 History Allergies Allergy/AdvReac Type Severity Reaction Status Date / Time No Known Allergies Allergy Verified 09/15/20 00:16 Results - Labs CBC & Chem 7: 02/25/21 06:04 02/25/21 06:04 Labs: Short CBC 02/25/21 Range/Units 06:04 WBC 8.5 (4.5-10.0) K/mm3 Hgb 12.1 (12.0-15.0) g/dL Hct 34.7 L (37.0-47.0) % Plt Count 144 L (150-375) k/mm3 BMP 02/25/21 06:04 Sodium 133 L Potassium 3.7 Chloride 100 Carbon Dioxide 27 BUN 5 L Creatinine 0.60 L Glucose 70 Calcium 8.4 Liver Function 02/25/21 Range/Units 06:04 Total Bilirubin 4.0 H (0.2-1.3) mg/dL AST 655 H (14-36) U/L ALT 624 H (4-35) U/L Alkaline Phosphatase 430 H (38-126) U/L Albumin 3.1 L (3.5-5.1) g/dL Assessment and Plan - Additional Plan Splenomegaly. Patient is the 20-year-old female with been in good health developed sudden onset of left upper quadrant abdominal pain along with intermittent nausea vomiting fevers and chills. CT scan showed severe splenomegaly with spleen size of 20 cm and peripheral infarction and small subacute versus chronic subcapsular hematoma. On examination there is generalized lymphadenopathy in the groin neck and bilateral axilla. Labs showed normal WBC count but lymphocytosis and normal hemoglobin and mild thrombocytopenia. Monospot test came back positive. These findings could very well be secondary to infectious mononucleosis. There is also concern of underlying lymphoproliferative disorder. I will order flow cytometric analysis for lymphoma panel. Patient was recommended to have conservative management for her abdominal pain and splenic infarction that would include pain medication and warm compresses. Clinically she is already feeling better. P
[2021-02-25 22:00] VITALS: BP 131/66; PULSE 77; RESP 16; TEMP 37.9; O2SAT 97
[2021-02-26 06:00] VITALS: BP 118/60; PULSE 78; RESP 16; TEMP 37.5; O2SAT 98
[2021-02-26 06:05] LABS: Hematocrit 36.2 % (37.0-47.0); Hemoglobin 12.5 g/dL (12.0-15.0); Mean Corpuscular HGB Conc 34.5 g/dl (32-36); Mean Corpuscular Hemoglobin 28.9 pg (26-34); Mean Corpuscular Volume 83.6 fl (80-100); Mean Platelet Volume 9.4 fl (7.4-10.4); Platelet Count Result 150 k/mm3 (150-375); Red Blood Count 4.33 M/mm3 (4.2-5.4); Red Cell Distribution Width 13.2 % (11.5-14.5); White Blood Count 9.6 K/mm3 (4.5-10.0)
[2021-02-26 06:18] LABS: Alanine Aminotransferase 660 U/L (4-35); Albumin Level 3.3 g/dL (3.5-5.1); Alkaline Phosphatase 545 U/L (38-126); Anion Gap 3 mmol/L (8-16); Aspartate Amino Transferase 633 U/L (14-36); Bilirubin Direct 1.9 mg/dL (0-0.3); Blood Urea Nitrogen 5 mg/dL (7-17); Calcium 8.5 mg/dL (8.4-10.2); Carbon Dioxide 30 mmol/L (22-30); Chloride 100 mmol/L (98-107); Estimated CRCL calculation 116 ml/min; Estimated Glomerular Filt Rate > 60; Glucose 93 mg/dL (65-105); Magnesium 1.8 mg/dL (1.6-2.3); Potassium 3.9 mmol/L (3.4-5.0); Sodium 133 mmol/L (137-145)
[2021-02-26] MEDS: HYDROcodone/acetaminophen (*CRX) 5-325 MG TABLET 1 TAB PO ×2 (06:25→15:37)
[2021-02-26 06:56] LABS: HIV 1/2 Ab P24 Ag Result Negative (Negative)
[2021-02-26 07:16] LABS: Band Neutrophils Percent 6 % (0-6); Lymphocytes Absolute Manual 4.99 K/mm3 (1.1-4.5); Metamyelocytes Percent 1 %; Monocytes Absolute Manual 1.15 K/mm3 (0.1-0.90); Monocytes Percent Manual 12 % (3-9); Neutrophils Absolute Manual 3.36 K/mm3 (1.7-7.2); Neutrophils Percent Manual 29 % (46-73); Total Cells Counted 100
[2021-02-26 07:17] LABS: Atypical Lymphocytes Present; Platelet Estimate Adequate (Adequate)
[2021-02-26] MEDS: PANTOPRAZOLE SODIUM IV 40 MG VIAL IV PUSH (08:26)
[2021-02-26 14:00] VITALS: BP 121/67; PULSE 82; RESP 18; O2SAT 99
--- NOTE | 2021-02-26 14:08 | PM.PNGS ---
Progress Note: A&P Assessment and Plan (1) Hematoma of spleen without rupture of capsule: Onset Date: ~02/21/21 Code(s): D73.5 - Infarction of spleen Status: Acute Assessment and Plan: CT scan in the emergency room showed some splenic infarcts and a subcapsular hematoma. This was the reason for our consultation. She is showing signs of clinical improvement. LFTs are still elevated and medicine is working her up further for this and has consulted Hematology/Oncology. There is no indication for surgical intervention. We will sign off at this point. I have discussed follow-up with the patient and her mother. She is going to be moving back to [place] with her parents for at least a month after discharge. We would like her to follow-up with her PCP in 1-2 weeks after discharge in [place]. If they have any questions or concerns, then they can call us regarding further care. No need for further outpatient imaging unless she develops new symptoms or has clinical changes. Please call us with any further surgical issues or concerns. (2) Splenic infarct: Onset Date: Unknown Code(s): D73.5 - Infarction of spleen Status: Acute Assessment and Plan: As above. (3) Infectious mononucleosis: Onset Date: ~02/2021 Code(s): B27.90 - Infectious mononucleosis, unspecified without complication Status: Acute Assessment and Plan: Symptoms continue to improve. Now tolerating a diet and nausea has nearly completely subsided. Continue supportive care. ID recommendations noted. (4) Elevated LFTs: Onset Date: ~02/2021 Code(s): R79.89 - Other specified abnormal findings of blood chemistry Status: Acute Assessment and Plan: LFTs remain elevated. Could be secondary to her mono. Management per Hospitalist. Hematology/Oncology has been consulted and now following the patient. (5) Splenomegaly: Onset Date: ~02/2021 Code(s): R16.1 - Splenomegaly, not elsewhere classified Status: Acute Assessment and Plan: Likely secondary to her mono. She has been instructed to avoid contact sports or any activity that could cause chest/abdominal trauma for at least 3-4 weeks after symptom onset. Additional Plan I have discussed the plan of care with Dr. Diamond. Subjective Subjective Date/Time Seen: 02/26/21 14:08 Patient reports: no new complaints, feels better, pain is less and afebrile Review of Systems Review of Systems: All systems reviewed & are unremarkable except as noted in HPI and below Exam Const: General: no acute distress and awake Orientation/consciousness: patient oriented x3 GI: Inspection: non-distended GI Palp: Yes Soft to palpation, Yes Tenderness to palpation present (GI) (mild, improved in LUQ), No Guarding due to palpation present (GI), Yes Splenomegaly present (difficult to appreciate any splenomegaly) and No Rebound tenderness present Auscultation: normal bowel sounds Neuro: General: no focal motor deficits Speech: normal speech Psych: Mental Status: mental status grossly normal Insight: Good insight present (Psych) Objective Data Vital Signs Vital Signs: Vital Signs - 24 hr 02/25/21 22:00 02/26/21 06:00 Temperature 100.2 F H 99.5 F Pulse Rate 77 78 Respiratory Rate 16 16 Blood Pressure 131/66 118/60 Pulse Oximetry 97 98 Intake/Output Intake/Output: Intake & Output 02/23/21 02/24/21 02/25/21 02/26/21 23:59 23:59 23:59 23:59 Intake Total 4020 2940 3730 440 Output Total 1999 2300 1900 700 Balance 2020 640 1830 -260 Meds/Results Medications: Active Medications Generic Name Dose Route Start Last Admin Trade Name Freq PRN Reason Stop Dose Admin Hydrocodone Bitart/Acetaminophen 1 tab 02/23/21 16:33 02/26/21 06:25 Hydrocodone/Acetaminophen (*Crx) 5-325 Mg Tablet PO 1 tab Q6H PRN Administration Pain Rated 6 or Greater Albuterol 2 puff 02/22/21 23:33 Albuterol Sulfate (*S
--- NOTE | 2021-02-26 14:25 | PM.DS ---
DS: Admitting Diagnosis Admitting Diagnosis Admitting Diagnosis: Infectious mononucleosis, splenomegaly DS: Discharge Diagnosis Discharge Diagnosis (1) Infectious mononucleosis: Onset Date: ~02/2021 Code(s): B27.90 - Infectious mononucleosis, unspecified without complication Status: Acute Assessment and Plan: Date of Admission 02/22/21 Date of Discharge 02/26/21 Sallie is a pleasant 20yo F who presented to the ED for evaluation of abdominal pain. She was found to have elevated LFTs on lab work and an enlarged spleen on imaging. CT abdomen showed severe splenomegaly with peripheral infarcts and small subacute vs. chronic subcapsilar hematoma. Osborne spot test was positive. It is suspected these findings and her symptoms are related to acute mononucleosis infection. General surgery was consulted due to the hematoma and recommend continued supportive care for mono infection. Infectious disease was consulted and recommended same. Hematology was consulted and conducted studies to rule out a lymphoproliferative disorder such as lymphoma. Sallie is encouraged to follow up with Dr Monroe's office for these results next week and to establish care with a asp net programmer up her return home back to [place]. She is feeling improved after IV hydration and antiemetics and she is hemodynamically stable for discharge 02/26/21. Her mother is present at the bedside day of discharge; both patient and her mother are comfortable with discharge plan and aware of recommendations to follow up with PCP and hematology promptly upon their return home to [place]. (2) Splenomegaly: Onset Date: ~02/2021 Code(s): R16.1 - Splenomegaly, not elsewhere classified Status: Acute Assessment and Plan: Secondary to above. She was educated on sports/activity restriction. (3) Splenic infarct: Onset Date: Unknown Code(s): D73.5 - Infarction of spleen Status: Acute Assessment and Plan: Labs stable, pain improved. (4) Hematoma of spleen without rupture of capsule: Onset Date: ~02/21/21 Code(s): D73.5 - Infarction of spleen Status: Acute Assessment and Plan: See above. General surgery evaluated and recommended continued supportive care for mono. (5) Elevated LFTs: Onset Date: ~02/2021 Code(s): R79.89 - Other specified abnormal findings of blood chemistry Status: Acute Assessment and Plan: Improving. Repeat labs outpatient to continue monitoring. DS: Summary Hospital Course Hospital Course: See above Time Spent with Patient Time attestation: Total time spent providing and/or coordinating discharge services: 40 mintues Exam Narrative: Exam Narrative: General: Well developed well nourished patient in NAD HEENT: normocephalic Neck: supple Neuro: Alert and oriented x4 CV:RRR Resp:CTA Abd: Soft, non distended. No pain to palpation. Positive bowel sounds. Extremities: No swelling, erythema, or pain to palpation. DS: Data Data Completed and Pending Pending studies at discharge: Pending at discharge 02/25/21 18:08 Surgical [PTH] Routine Labs on day of discharge: Last Vital Signs Temp 99.5 F 02/26/21 06:00 Pulse 82 02/26/21 14:00 Resp 18 02/26/21 14:00 BP 121/67 02/26/21 14:00 Pulse Ox 99 02/26/21 14:00 ITS Impressions Pelvic/Transvag US 02/22/21 15:21 IMPRESSION: 1. Normal pelvis. Intrauterine device in expected position. Abdomen/Pelvis CT 02/22/21 16:11 IMPRESSION: 1. Severe splenomegaly with peripheral infarcts and small subacute versus chronic subcapsular hematoma. Abdomen Ultrasound 02/25/21 09:54 IMPRESSION: 3 mm gallbladder polyp Splenomegaly Two areas of peripheral hypoechogenic
== END 2021-02-26 15:45 | disposition home or self-care (01) | DRG 866 ==
LOC: ANHED 14:33 → ANH3MEDSUR 20:16
PROVIDERS: Emergency Medicine; Nurse Practitioner; Physician Assistant; Admitting Provider Internal Medicine; Emergency Provider General Practice; Visit Provider Physician Assistant
DX: B27.90 Infectious mononucleosis, unspecified without complication; D73.5 Infarction of spleen; R16.1 Splenomegaly, not elsewhere classified; R79.89 Other specified abnormal findings of blood chemistry; Z79.899 Other long term (current) drug therapy
CPT/HCPCS: 36415; 74177; 76705; 76830; 76856; 80048; 80053; 80074; 80076; 81001; 81025; 82550; 83605; 83615; 83690; 83735; 85025; 85046; 85055; 86308; 86703; 87040; 87070; 87086; 87491; 87591; 87808; 96361; 96365; 96374; 96375; 96376; 99285; A9270; C9113; G0378; G0432; J0131; J1885; J2270; J2405; J2765; J7030; Q9967